=== PATIENT | male | born 1970 | race Caucasian/White ===

== ENCOUNTER 2022-03-14 09:44 | Emergency (ER) | payer OTHER ==
[~2022-03-14] VITALS: Ht 172.7 cm; Wt 89.1 kg
[~2022-03-14 09:44] MED LIST: ZOFRAN 4MG T4 MG/TAB PO
[2022-03-14 10:33] LABS: COLLECTION METHOD CLEAN CATCH
[2022-03-14 10:44] LABS: PH 6 (5-8); SQUAMOUS EPITHELIAL None Seen /hpf (0-10); URINE APPEARANCE Clear (CLEAR/HAZY); URINE BACTERIA None Seen /hpf (NONE SEEN); URINE BILIRUBIN Negative (NEGATIVE); URINE BLOOD Negative (NEGATIVE); URINE COLOR Straw (YELLOW); URINE GLUCOSE Negative (NEGATIVE); URINE KETONE Negative (NEGATIVE); URINE LEUKOCYTE ESTERASE Trace (NEGATIVE); URINE NITRATE Negative (NEGATIVE); URINE PROTEIN(semi-quant) Negative (NEGATIVE); URINE RBC 0-2 /hpf (0-2); URINE UROBILINOGEN Negative (NEGATIVE)
[2022-03-14] MEDS ORDERED: FLEXERIL 1010 MG/TAB PO (11:07)
[2022-03-14] MEDS ORDERED: MEDROL 4MG DOSPA4 MG PO (11:07)
[2022-03-14 11:19] VITALS: BP 135/92; PULSE 78
== END 2022-03-14 11:21 | disposition home or self-care (01) ==
LOC: COL.ER 09:44
PROVIDERS: Nurse Practitioner
DX: M54.50 Low back pain, unspecified (principal); F17.220 Nicotine dependence, chewing tobacco, uncomplicated; X50.0XXA Overexertion from strenuous movement or load, initial encounter
CPT/HCPCS: J7512